=== PATIENT | male | born 1990 | race Two or more races ===

== ENCOUNTER 2024-06-12 18:48 | Emergency (ER) | payer MEDICAID, OTHER | END 2024-06-12 20:24 | disposition left against medical advice (07) | LOC: ER 18:51 | DX: Z53.21 Procedure and treatment not carried out due to patient leaving prior to being seen by health care provider (principal) ==

== ENCOUNTER 2024-06-15 19:40 | Emergency (ER) | payer OTHER ==
[~2024-06-15] VITALS: Ht 180.3 cm; Wt 83.9 kg
[2024-06-15 22:01] VITALS: BP 141/79; TEMP 98.5; O2SAT 99
== END 2024-06-15 22:05 | disposition home or self-care (01) ==
LOC: ER 19:43
DX: Z00.00 Encounter for general adult medical examination without abnormal findings (principal); Z53.21 Procedure and treatment not carried out due to patient leaving prior to being seen by health care provider